=== PATIENT | male | born 1995 | race American Indian/Alaskan Native ===

== ENCOUNTER 2018-08-31 07:20 | Emergency (ER) | payer OTHER ==
[2018-08-31 07:25] VITALS: BP 125/60
--- NOTE | 2018-08-31 09:28 | Emergency Department Report ---
- General Chief Complaint: Laceration/Recheck/Suture Stated Complaint: TO GET PACKING REMOVED FROM ABSCESS Time Seen by Provider: 08/31/18 09:23 Source: patient Mode of arrival: Ambulatory Limitations: No Limitations - History of Present Illness Initial Comments: 23 y/o male comes in for packing removal from [facility]. Paient was he on 08/27/18 and had abscess drained and packed. Patient reports that he is taking medications as prescribed. Denies any fevers. Onset/Timin -: days(s) Location: other (gluteal cleft) Patient Tetanus UTD: Yes Treatments Prior to Arrival: bandage - Related Data Previous Rx's Medication Instructions Recorded Last Taken Type Clindamycin [Clindamycin Oral] 450 mg PO TID #21 capsule 06/09/14 Unknown Rx Ibuprofen [Motrin] 800 mg PO Q8H PRN #30 tablet 06/09/14 Unknown Rx traMADol [Ultram] 50 mg PO Q6HR PRN #14 tablet 06/09/14 Unknown Rx DOXYCYCLINE Hyclate [Vibramycin 100 mg PO Q12HR #14 capsule 08/27/18 Unknown Rx CAP] HYDROcodone/APAP 5-325 [[place] 1 each PO Q6HR PRN #14 tablet 08/27/18 Unknown Rx 5/325] Ibuprofen [Motrin 800 MG tab] 800 mg PO Q8HR PRN #10 tablet 08/27/18 Unknown Rx Ketorolac [Toradol] 10 mg PO Q6H PRN #12 tablet 08/27/18 Unknown Rx Allergies Allergy/AdvReac Type Severity Reaction Status Date / Time Penicillins Allergy Hives Verified 08/31/18 07:22 ED Review of Systems ROS: Stated complaint: TO GET PACKING REMOVED FROM ABSCESS Other details as noted in HPI Comment: All other systems reviewed and negative Constitutional: denies: chills, fever ED Past Medical Hx - Past Medical History Previous Medical History?: No - Surgical History Past Surgical History?: No - Social History Smoking Status: Current Some Day Smoker Substance Use Type: Marijuana - Medications Home Medications: Home Medications Medication Instructions Recorded Confirmed Last Taken Type Clindamycin [Clindamycin Oral] 450 mg PO TID #21 capsule 06/09/14 Unknown Rx Ibuprofen [Motrin] 800 mg PO Q8H PRN #30 tablet 06/09/14 Unknown Rx traMADol [Ultram] 50 mg PO Q6HR PRN #14 tablet 06/09/14 Unknown Rx DOXYCYCLINE Hyclate [Vibramycin 100 mg PO Q12HR #14 capsule 08/27/18 Unknown Rx CAP] HYDROcodone/APAP 5-325 [[place] 1 each PO Q6HR PRN #14 tablet 08/27/18 Unknown Rx 5/325] Ibuprofen [Motrin 800 MG tab] 800 mg PO Q8HR PRN #10 tablet 08/27/18 Unknown Rx Ketorolac [Toradol] 10 mg PO Q6H PRN #12 tablet 08/27/18 Unknown Rx ED Physical Exam - General Limitations: No Limitations General appearance: alert, in no apparent distress - Head Head exam: Present: atraumatic, normocephalic - Eye Eye exam: Present: normal appearance - ENT ENT exam: Present: mucous membranes moist - Neck Neck exam: Present: normal inspection, full ROM - Rectal Rectal exam: Present: other (pilondile wound clean 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 Absent: rash ED Course Vital Signs 08/31/18 07:23 Temperature 97.9 F Pulse Rate 71 Respiratory 18 Rate Blood Pressure 125/60 O2 Sat by Pulse 100 Oximetry ED Medical Decision Making - Medical Decision Making 23 y/o male comes in for repacking of wound. Packing was removed and packed cleaning packing to wound. Critical care attestation.: If time is entered above; I have spent that time in minutes in the direct care of this critically ill patient, excluding procedure time. ED Disposition Clinical Impression: Pilonidal abscess, Encounter for wound care Disposition: DC- TO HOME OR SELFCARE Is pt being admited?: No Does the pt Need Aspirin: No Condition: Stable Additional Instructions: Continue with meds as prescribed return in 3 days for packing removal. Referrals: NELLY BERUMEN MD [Primary Care Provider] - 3-5 Days
[2018-08-31] MEDS ORDERED: IBUPROFEN PO ONE (09:47)
== END 2018-08-31 09:39 | disposition home or self-care (01) ==
LOC: ED 07:20
DX: L05.01 Pilonidal cyst with abscess (principal); Z88.0 Allergy status to penicillin; F17.200 Nicotine dependence, unspecified, uncomplicated; F12.10 Cannabis abuse, uncomplicated
CPT/HCPCS: 99281

== ENCOUNTER 2019-02-14 19:18 | Emergency (ER) | payer SELFPAY ==
--- NOTE | 2019-02-14 21:22 | Event Note ---
ED Screening Note Date of service: 02/14/19 Time: 21:20 ED Screening Note: Pt c/o lower abd pain x 3-4 days ago. Constant in nature. Non radiating. +n/v/d. No UTI symptoms. No fever. Boyfriend with stomach virus. hx HIV, reports medical compliance, last viral load undetectable. Unsure of last CD4 count. This initial assessment/diagnostic orders/clinical plan/treatment(s) is/are subject to change based on patients health status, clinical progression and re- assessment by fellow clinical providers in the ED. Further treatment and workup at subsequent clinical providers discretion. Patient/guardian urged not to elope from the ED as their condition may be serious if not clinically assessed and managed. Initial orders include: labs fluids
[2019-02-14] MEDS ORDERED: SODIUM CHLORIDE 0.9% 1000 ML 1,000 ML IV ONE (21:23)
[2019-02-14 21:47] LABS: Hematocrit 43.1 % (35.5-45.6); Hemoglobin 14.3 gm/dl (11.8-15.2); Mean Corpuscular HGB Conc 33 % (32-34); Mean Corpuscular Volume 87 fl (84-94); Platelet Count 214 K/mm3 (140-440); Red Blood Count 4.98 M/mm3 (3.65-5.03); Red Cell Distribution Width 15.1 % (13.2-15.2)
[2019-02-14 22:08] LABS: Alanine Aminotransferase 11 units/L (7-56); Albumin 4.6 g/dL (3.9-5); BUN/Creatinine Ratio 13; Blood Urea Nitrogen 12 mg/dL (9-20); Calcium 9.6 mg/dL (8.4-10.2); Hemolysis Index 8
[2019-02-14] MEDS ORDERED: DICYCLOMINE 20 MG/2 ML INJ IM ONE (22:28)
[2019-02-14] MEDS ORDERED: ONDANSETRON 4 MG ODT TAB PO ONE (22:28)
--- NOTE | 2019-02-14 22:29 | Emergency Department Report ---
Vomiting/Diarrhea - HPI Chief Complaint: Abdominal Pain Stated Complaint: STOMACH VIRUS Time Seen by Provider: 02/14/19 21:19 Duration: 2 Days Severity: moderate Nausea/Vomiting Severity: Moderate Diarrhea Severity: Mild (yesterday only) Pain Location: Generalized (crampy in nature) Pain Severity: Mild Symptoms: Yes Watery Diarrhea, Yes Fever, Yes Able to Tolerate Fluids, No Bloody diarrhea, No Recent Untreated Water, No Recent use of Antibiotics, No Family w/ Similar Symptoms, No Contacts w/ Similar Symptoms ED Review of Systems ROS: Stated complaint: STOMACH VIRUS Other details as noted in HPI Comment: All other systems reviewed and negative ED Past Medical Hx - Past Medical History Previous Medical History?: Yes Hx HIV: Yes - Surgical History Past Surgical History?: No - Social History Smoking Status: Current Every Day Smoker Substance Use Type: Alcohol - Medications Home Medications: Home Medications Medication Instructions Recorded Confirmed Last Taken Type Clindamycin [Clindamycin Oral] 450 mg PO TID #21 capsule 06/09/14 Unknown Rx Ibuprofen [Motrin] 800 mg PO Q8H PRN #30 tablet 06/09/14 Unknown Rx traMADol [Ultram] 50 mg PO Q6HR PRN #14 tablet 06/09/14 Unknown Rx DOXYCYCLINE Hyclate [Vibramycin 100 mg PO Q12HR #14 capsule 08/27/18 Unknown Rx CAP] HYDROcodone/APAP 5-325 [[place] 1 each PO Q6HR PRN #14 tablet 08/27/18 Unknown Rx 5/325] Ibuprofen [Motrin 800 MG tab] 800 mg PO Q8HR PRN #10 tablet 08/27/18 Unknown Rx Ketorolac [Toradol] 10 mg PO Q6H PRN #12 tablet 08/27/18 Unknown Rx Dicyclomine [Bentyl] 20 mg PO QID #10 tablet 02/14/19 Unknown Rx Ondansetron [Zofran Odt] 4 mg PO Q8HR #10 tab.rapdis 02/14/19 Unknown Rx Vomiting Diarrhea Exam - Exam General: Vital signs noted. No distress. Alert and acting appropriately. HEENT: Yes Moist Mucous Membranes, No Pharyngeal Erythema, No Pharyngeal Exudates, No Rhinorrhea, No Conjuctival Injection, No Frontal Tenderness, No Maxillary Tenderness Neck: No Adenopathy, No Rigidity Lungs: Yes Clear Lung Sounds, Yes Good Air Exchange, No Wheezes, No Stridor, No Cough, No Nasal Flaring, No Retractions, No Use of Accessory Muscles Heart exam: Regular: Yes, Murmur: No, Tachycardia: No Abdomen: Tenderness: No, Peritoneal Signs: No, Distention: No, Hyperactive Bowel sounds: No Skin exam: Rash: No, Edema: No, Normal turgor: Yes Neurologic: Alert and oriented, no deficits. Musculoskeletal: Unremarkable. ED Course Vital Signs 02/14/19 19:52 Temperature 98.8 F Pulse Rate 71 Respiratory 14 Rate Blood Pressure 129/81 O2 Sat by Pulse 97 Oximetry ED Medical Decision Making - Lab Data Result diagrams: 02/14/19 21:34 02/14/19 21:34 - Medical Decision Making Patient is a 24-year-old -[place] male who is presenting with nausea and vomiting and diarrhea. Patient states the diarrhea resolved late last night. Patient states is still having some stomach crampiness. Labs or studies within normal limits. Patient does not have any ON abnormalities or elevated white count. Patient's refused IV fluids stating that he doesn't feel as though he is dehydrated just wanted something for his nausea and stomach cramping. Patient was given Zofran ODT and shot of Bentyl may be discharged home. Critical care attestation.: If time is entered above; I have spent that time in minutes in the direct care of this critically ill patient, excluding procedure time. ED Disposition Clinical Impression: Viral gastroenteritis Disposition: DC-01 TO HOME OR SELFCARE Is pt being admited?: No Does the pt Need Aspirin: No Condition: Stable Instructions: Gastroenteritis (ED) Referrals: NAHID MARTINEZ MD [Referring] - 3-5 Days Time of Disposition: 22:28
[2019-02-14 22:49] LABS: Basophils % (Manual) 0 % (0.0-1.8); Total Cells Counted 100
[2019-02-14 22:50] LABS: Platelet Estimate Consistent w Auto; RBC Morphology Normal
[2019-02-14 22:56] VITALS: BP 127/89
== END 2019-02-14 22:45 | disposition home or self-care (01) ==
LOC: ED 19:18
DX: A08.4 Viral intestinal infection, unspecified (principal); F17.200 Nicotine dependence, unspecified, uncomplicated; Z21 Asymptomatic human immunodeficiency virus [HIV] infection status; Z88.0 Allergy status to penicillin
CPT/HCPCS: 36415; 80053; 83690; 83735; 85007; 85025; 96372; 99283; J0500; J7030; Q0162